=== PATIENT | male | born 1950 | race Caucasian/White ===

== ENCOUNTER 2018-03-22 05:48 | Emergency (ER) | payer MEDICARE, OTHER ==
[2018-03-22] MEDS ORDERED: DECADRON 10MG INJ. IV ONE (06:26)
[2018-03-22] MEDS ORDERED: Unasyn 3GM / NaCl 100ML 3 GM/100 ML IVPB IV STA (06:29)
[2018-03-22] MEDS ORDERED: Sodium Chloride 0.9% 1000 ML 1,000 ML IV SCH (06:30)
[2018-03-22] MEDS ORDERED: Unasyn 3GM / NaCl 100ML 3 GM/100 ML IVPB ONE (06:39)
[2018-03-22] MEDS ORDERED: DECADRON 10MG INJ. ONE (06:39)
[2018-03-22] MEDS ORDERED: Sodium Chloride 0.9% 1000 ML 1,000 ML ONE (06:39)
[2018-03-22] MEDS ORDERED: BENADRYL 50 MG/ML ONE (06:47)
[2018-03-22] MEDS ORDERED: BENADRYL 50 MG/ML IV ONE (06:47)
--- NOTE | 2018-03-22 06:53 | ERPHSYRPT ---
- History of Present Illness Source: patient Exam Limitations: clinical condition Patient Subjective Stated Complaint: Pts left ear hurts and his throat feels like it is swollen and closed off. He had strep throat about 3 weeks ago and was given a Kenalog shot. Triage Nursing Assessment: Pt A&O x3, comes in with complaints of his left side of his throat is so swollen that it he can't breath through his mouth and he can 't swallow and also that his left ear hurts and the pain radiates down the side , throat is swollen and red, neck is tender on palpation, hx of strep throat 3 weeks ago, bp 164/78, doesn't appear to be in any distress Timing/Duration: abrupt onset Severity: severe ENT Location: throat Prearrival Treatment: no prearrival treatment Modifying Factors: Improves With: nothing Associated Symptoms: difficulty swallowing <SACHIN OSULLIVAN - Last Filed: 03/22/18 06:47> <GODFREY THOMAS - Last Filed: 03/22/18 09:16> - History of Present Illness Time Seen by Provider: 03/22/18 06:12 Physician History: PATIENT STATES HE WAS TREATED FOR STREP PHARYNGITIS WITH A KENALOG INJECTION 2 WEEKS AGO, NOW HAS THROAT PAIN, PAINFUL SWALLOWING OVER THE PAST 2 DAYS. DENIES FEVER, CHILLS OR COUGH (SACHIN OSULLIVAN) Allergies/Adverse Reactions: No Known Drug Allergies Allergy (Verified 03/22/18 06:09) Home Medications: No Reportable Medications [No Reported Medications] 03/22/18 [History] - Review of Systems Constitutional: No Fever, No Chills Eyes: No Symptoms Ears, Nose, & Throat: No Symptoms, Throat Swelling, Painful Swallowing Respiratory: No Symptoms, No Cough, No Dyspnea Cardiac: No Symptoms, No Chest Pain, No Edema, No Syncope Abdominal/Gastrointestinal: No Abdominal Pain, No Nausea, No Vomiting, No Diarrhea Genitourinary Symptoms: No Dysuria Musculoskeletal: No Back Pain, No Neck Pain Skin: No Rash Neurological: No Dizziness, No Focal Weakness, No Sensory Changes Psychological: No Symptoms Endocrine: No Symptoms All Other Systems: Reviewed and Negative <SACHIN OSULLIVAN - Last Filed: 03/22/18 06:47> - Past Medical History Pertinent Past Medical History: No - Past Surgical History Past Surgical History: Yes Musculoskeletal: Other Other Surgical History: hand surgery - Social History Smoking Status: Former smoker Exposure to second hand smoke: No Drug Use: none Patient Lives Alone: No <SACHIN OSULLIVAN - Last Filed: 03/22/18 06:47> - Physical Exam General Appearance: no apparent distress, alert, other (THERE IS NO STRIDOR OR AUDIBLE WHEEZES) Eye Exam: bilateral eye: PERRL, EOMI Ear Exam: bilateral ear: auricle normal, canal normal Nasal Exam: normal inspection Throat Exam: moist mucus membranes, pharynx swelling (LEFT SOFT PALATE SWELLING WITH TENDERNESS ON THE LEFT, LEFT PHARYNGEAL SWELLING WITH ERYTHEMA, NO EXUDATE NOTED), No tonsillar exudate Neck Exam: supple Cardiovascular/Respiratory Exam: normal breath sounds, regular rate/rhythm Abdominal Exam: non-tender, soft Neurologic Exam: alert, oriented x 3, sensation nml, No motor deficits Skin Exam: normal color, warm, dry SpO2: 98 Oxygen Delivery: Room Air <SACHIN OSULLIVAN - Last Filed: 03/22/18 06:47> - Nursing Vital Signs Nursing Vital Signs: Initial Vital Signs Temperature 98.8 F 03/22/18 05:55 Pulse Rate 85 03/22/18 05:55 Blood Pressure 164/78 03/22/18 05:55 O2 Sat by Pulse Oximetry 98 03/22/18 05:55 Pain Scale Pain Intensity 0 - CT Exams Soft Tissue Neck CT Interpretation: Tele-radiologist Report, Other (soft tissue mass in left piriformis sinus with mass effect on palatine tonsil per Dr Grant.) <GODFREY THOMAS - Last Filed: 03/22/18 09:16> Ordered Tests: Active Orders 24 hr Category Date Time Status NECK WITH CONTRAST [CT] Stat Exams 03/22/18 06:27 Taken BLOOD CULTURE Stat Lab 03/22/18 06:46 Received CBC W DIFF Stat Lab 03/22/18 06:35 Completed CMP Stat Lab 03/22/18 06:35 Completed CULTURE, THROAT Stat Lab 03/22/18 06:30 Received [place] Screen Stat Lab 03/22/18 06:35 Completed STREP SCREEN-BETA A Stat Lab 03/22/18 06:30 Completed Medication Summary Generic Name Dose Route Start Last Admin Trade Name Freq PRN Reason Stop Dose Admin Sodium Chloride 1,000 mls @ 250 mls/hr 03/22/18 06:30 03/22/18 06:42 Sodium Chloride 0.9% 1000 Ml IV 04/21/18 06:29 250 mls/hr .Q4H ANA Administration Discontinued Medications Generic Name Dose Route Start Last Admin Trade Name Juliette PRN Reason Stop Dose Admin Dexamethasone Sodium Phosphate 20 mg 03/22/18 06:26 03/22/18 06:43 Decadron 10mg Inj. IV 03/22/18 06:27 20 mg STAT ONE Administration Dexamethasone Sodium Phosphate Confirm 03/22/18 06:39 Decadron 10mg Inj. Administered 03/22/18 06:40 Dose 20 mg .ROUTE .STK-MED ONE Diphenhydramine HCl 50 mg 03/22/18 06:47 03/22/18 06:56 Benadryl 50 Mg/Ml IV 03/22/18 06:48 50 mg STAT ONE Administration Diphenhydramine HCl Confirm 03/22/18 06:47 Benadryl 50 Mg/Ml Administered 03/22/18 06:48 Dose 50 mg .ROUTE .STK-MED ONE Ampicillin Sodium/Sulbactam Sodium 3 gm in 100 mls @ 200 mls/hr 03/22/18 06: 29 03/22/18 06:42 Unasyn 3gm / Nacl 100ml IV 03/22/18 06:58 200 mls/hr STAT STA 200 mls/hr Administration Ampicillin Sodium/Sulbactam Sodium Confirm 03/22/18 06:39 Unasyn 3gm / Nacl 100ml Administered 03/22/18 06:40 Dose 3 gm in 100 mls @ ud .ROUTE .STK-MED ONE Ketorolac Tromethamine 30 mg 03/22/18 07:44 03/22/18 07:47 Toradol 30 Mg Injection IV 03/22/18 07:45 30 mg STAT ONE Administration Ketorolac Tromethamine Confirm 03/22/18 07:46 Toradol 30 Mg Injection Administered 03/22/18 07:47 Dose 30 mg .ROUTE .STK-MED ONE Lab/Rad Data: Laboratory Result Diagrams 03/22/18 06:35 03/22/18 06:35 Laboratory Results 03/22/18 03/22/18 03/22/18 Range/Units 06:35 06:35 06:35 WBC 12.8 H (4.0-10.5) K/mm3 RBC 4.68 (4.1-5.6) M/mm3 Hgb 14.7 (12.5-18.0) gm/dl Hct 43.8 (42-50) % MCV 93.6 (78-100) fl MCH 31.4 (26-32) pg MCHC 33.6 (32-36) g/dl RDW 12.5 (11.5-14.0) % Plt Count 346 (150-450) K/mm3 MPV 9.2 (6-9.5) fl Gran % 79.6 H (36.0-66.0) % Eos # (Auto) 0.13 (0-0.5) Absolute Lymphs (auto) 1.40 (1.0-4.6) Absolute Monos (auto) 1.06 (0.0-1.3) Lymphocytes % 10.9 L (24.0-44.0) % Monocytes % 8.3 (0.0-12.0) % Eosinophils % 1.0 (0.00-5.0) % Basophils % 0.2 (0.0-0.4) % Absolute Granulocytes 10.19 H (1.4-6.9) Basophils # 0.02 (0-0.4) Sodium 138 (137-145) mmol/L Potassium 4.6 (3.5-5.1) mmol/L Chloride 102 (98-107) mmol/L Carbon Dioxide 28 (22-30) mmol/L Anion Gap 13.4 (5-15) MEQ/L BUN 10 (9-20) mg/dL Creatinine 0.68 (0.66-1.25) mg/dL Estimated GFR > 60.0 ML/MIN Glucose 139 H (74-106) mg/dL Calcium 9.3 (8.4-10.2) mg/dL Total Bilirubin 1.00 (0.2-1.3) mg/dL AST 28 (17-59) U/L ALT 25 (0-50) U/L Alkaline Phosphatase 75 (38-126) U/L Serum Total Protein 7.1 (6.3-8.2) g/dL Albumin 4.1 (3.5-5.0) g/dL Monoscreen NEGATIVE (Negative) Streptococcus Screen (Negative) 03/22/18 Range/Units 06:30 WBC (4.0-10.5) K/mm3 RBC (4.1-5.6) M/mm3 Hgb (12.5-18.0) gm/dl Hct (42-50) % MCV (78-100) fl MCH (26-32) pg MCHC (32-36) g/dl RDW (11.5-14.0) % Plt Count (150-450) K/mm3 MPV (6-9.5) fl Gran % (36.0-66.0) % Eos # (Auto) (0-0.5) Absolute Lymphs (auto) (1.0-4.6) Absolute Monos (auto) (0.0-1.3) Lymphocytes % (24.0-44.0) % Monocytes % (0.0-12.0) % Eosinophils % (0.00-5.0) % Basophils % (0.0-0.4) % Absolute Granulocytes (1.4-6.9) Basophils # (0-0.4) Sodium (137-145) mmol/L Potassium (3.5-5.1) mmol/L Chloride (98-107) mmol/L Carbon Dioxide (22-30) mmol/L Anion Gap (5-15) MEQ/L BUN (9-20) mg/dL Creatinine (0.66-1.25) mg/dL Estimated GFR ML/MIN Glucose (74-106) mg/dL Calcium (8.4-10.2) mg/dL Total Bilirubin (0.2-1.3) mg/dL AST (17-59) U/L ALT (0-50) U/L Alkaline Phosphatase (38-126) U/L Serum Total Protein (6.3-8.2) g/dL Albumin (3.5-5.0) g/dL Monoscreen (Negative) Streptococcus Screen NEGATIVE (Negative) <SACHIN OSULLIVAN - Last Filed: 03/22/18 06:47> - Progress Progress: improved Discussed with : Other (Dr Mckeon at [facility]) Will see patient in: hospital (observation) (at [facility]) Counseled pt/family regarding: lab results, diagnosis, rad results <GODFREY THOMAS - Last Filed: 03/22/18 09:16> - Progress Progress Note: 03/22/18 06:55 IV NORMAL SALINE 200ML/HR, DECADRON 20MG, ONSET OF ITCHING, ADMINISTERED BENADRYL 50MG IV, AFTER BLOOD CULTURES UNASYN 3GM IVPB, A SOFT TISSUE NECK WITH INTRAVENOUS PENDING, PATIENT CARE ENDORSED TO DR THOMAS AT 0705 (SACHIN OSULLIVAN) 03/22/18 07:10 Pt care discussed and care accepted from Dr Osullivan at 07:05. (GODFREY THOMAS) <SACHIN OSULLIVAN - Last Filed: 03/22/18 06:47> - Departure Time of Disposition: 09:02 Departure Disposition: Transfer (Transfer to [facility] per hospitalist Dr Mckeon and ENT DR Thomas.) Critical Care Time: No <GODFREY THOMAS - Last Filed: 03/22/18 09:16> - Departure Clinical Impression: Supraglottitis Condition: Stable Additional Instructions: You have supraglottitis. You are being transferred to [facility] to see the hospitalist Dr Mckeon and the ENT specialist Dr Thomas.
[2018-03-22 07:00] LABS: BASOPHIL % 0.2 % (0.0-0.4); Basophil (Absolute #) 0.02 (0-0.4); Eosinophil (Absolute #) 0.13 (0-0.5); Granulocyte Absolute (ANC) 10.19 (1.4-6.9); Granulocytes % 79.6 % (36.0-66.0); Hematocrit 43.8 % (42-50); Hemoglobin 14.7 gm/dl (12.5-18.0); Lymphocytes % 10.9 % (24.0-44.0); Mean Cell Volume 93.6 fl (78-100); Mean Corpuscular Hemoglobin 31.4 pg (26-32); Mean Corpuscular Hgb Concent. 33.6 g/dl (32-36); Mean Platelet Volume 9.2 fl (6-9.5); Monocyte (Absolute #) 1.06 (0.0-1.3); Monocytes % 8.3 % (0.0-12.0); Platelet Count 346 K/mm3 (150-450); Red Blood Count 4.68 M/mm3 (4.1-5.6); Red Cell Distribution Width 12.5 % (11.5-14.0); White Blood Count 12.8 K/mm3 (4.0-10.5)
[2018-03-22 07:31] LABS: ALBUMIN 4.1 g/dL (3.5-5.0); ALKALINE PHOSPHATASE 75 U/L (38-126); ANION GAP 13.4 MEQ/L (5-15); BLOOD UREA NITROGEN 10 mg/dL (9-20); CHLORIDE 102 mmol/L (98-107); Calcium 9.3 mg/dL (8.4-10.2); Carbon Dioxide 28 mmol/L (22-30); Creatinine 1 0.68 mg/dL (0.66-1.25); Glucose 139 mg/dL (74-106); Potassium 4.6 mmol/L (3.5-5.1); SGOT/AST 28 U/L (17-59); SGPT/ALT 25 U/L (0-50); SODIUM 138 mmol/L (137-145); Total Protein 7.1 g/dL (6.3-8.2)
[2018-03-22] MEDS ORDERED: TORAdol 30 mg Injection IV ONE (07:44)
[2018-03-22] MEDS ORDERED: TORAdol 30 mg Injection ONE (07:46)
--- NOTE | 2018-03-22 08:51 | XRAY ---
Indication: Swollen throat. Pain with swallowing. Multiple contiguous axial images obtained through the neck using 80 cc Isovue 370 contrast. Sagittal and coronal reformatted images obtained. Comparison: None There is beam artifact from dental prosthesis limiting these levels. There is a 2.2 x 2.0 x 4.1 cm soft tissue mass at the level of the piriformis sinus on the left narrowing the hypopharynx and slightly effacing the palatine tonsil. Epiglottis unremarkable. Infraglottic airway widely patent. Scattered small subcentimeter cervical lymph nodes bilaterally, none pathologically enlarged. Parotid and submandibular glands are bilaterally symmetric. Mild carotid calcifications bilaterally. Venous system unremarkable. Thyroid gland enhances homogeneously. Visualized cervical spine intact with multilevel bridging/nonbridging endplate osteophytes. Base of the brain and lung apices unremarkable. Visualized paranasal sinuses and mastoid air cells are clear. Impression: 1. Beam artifact from dental prosthesis. 2. Soft tissue mass in the left piriformis sinus with mass effect on the palatine tonsil. Rule out malignancy. Direct laryngoscopy recommended. CT DI 14.67
[2018-03-22 09:23] VITALS: BP 131/69
[2018-03-22 10:32] VITALS: PULSE 66; O2SAT 98
== END 2018-03-22 10:33 | disposition short-term general hospital (02) ==
LOC: ED 05:48
DX: J04.30 Supraglottitis, unspecified, without obstruction (principal)
CPT/HCPCS: 36415; 70491; 80053; 85025; 86308; 87040; 87070; 87430; 96360; 96361; 96365; 96374; 96375; 99285; J0295; J1100; J1200; J1885

== ENCOUNTER 2021-08-01 10:02 | Observation (INO) | payer MEDICARE, OTHER ==
[2021-08-01 10:30] LABS: Absolute Neutrophil Ct (ANC) 13.11 (1.4-6.9); BASOPHIL % 0.1 % (0.0-0.4); Basophil (Absolute #) 0.02 (0-0.4); Eosinophil % 0.2 % (0.00-5.0); Eosinophil (Absolute #) 0.03 (0-0.5); Hematocrit 45.6 % (42-50); Hemoglobin 14.8 gm/dl (12.5-18.0); Lymphocyte (Absolute #) 1.74 (1.0-4.6); Lymphocytes % 10.8 % (24.0-44.0); Mean Cell Volume 93.4 fl (78-100); Mean Corpuscular Hemoglobin 30.3 pg (26-32); Mean Corpuscular Hgb Concent. 32.5 g/dl (32-36); Mean Platelet Volume 9.1 fl (7.5-11.0); Monocyte (Absolute #) 1.25 (0.0-1.3); Monocytes % 7.7 % (0.0-12.0); Neutrophil % 81.2 % (36.0-66.0); Platelet Count 321 K/mm3 (150-450); Red Blood Count 4.88 M/mm3 (4.1-5.6); Red Cell Distribution Width 12.1 % (11.5-14.0); White Blood Count 16.2 K/mm3 (4.0-10.5)
[2021-08-01 12:02] LABS: ALBUMIN 4.8 g/dL (3.5-5.0); ALKALINE PHOSPHATASE 69 U/L (38-126); AMYLASE 71 U/L (30-110); ANION GAP 15.4 MEQ/L (5-15); BLOOD UREA NITROGEN 12 mg/dL (9-20); CHLORIDE 99 mmol/L (98-107); Calcium 9.5 mg/dL (8.4-10.2); Carbon Dioxide 25 mmol/L (22-30); Creatinine 1 0.77 mg/dL (0.66-1.25); EST GLOMERULAR FILTRATION RATE > 60.0 ML/MIN; Glucose 132 mg/dL (74-106); LIPASE 36 U/L (23-300); Potassium 4.6 mmol/L (3.5-5.1); SGOT/AST 32 U/L (17-59); SGPT/ALT 26 U/L (0-50); SODIUM 134 mmol/L (137-145); Total Protein 8.2 g/dL (6.3-8.2)
[2021-08-01] MEDS ORDERED: MORPHINE SULFATE 10 MG/ML IV PRN ×2 (13:13→19:26)
[2021-08-01] MEDS ORDERED: Zofran 4 MG/2 ML VIAL IV PRN ×2 (13:13→19:27)
--- NOTE | 2021-08-01 13:14 | XRAY ---
Exam: CT of the abdomen and pelvis with IV contrast from 08/01/2021. CTDI: 9.19 mGy Comparison: None. Indication: 70-year-old male with right lower quadrant abdominal pain and tenderness since last night. Technique: Post-IV contrast axial images were obtained through the abdomen and pelvis during automated injection of 80 cc of Isovue-370 contrast material. No oral contrast was given. Reconstructed coronal and sagittal images were created and reviewed. Delayed axial images were obtained as well. Findings: Within the right lower quadrant, there is a dilated appendix which measures up to 10 mm in diameter and demonstrates abnormal peripheral wall enhancement. Also, periappendiceal inflammatory stranding and minimal edema are also seen. These findings are consistent with acute appendicitis. I see no evidence of periappendiceal abscess. The visualized lung bases appear clear. The transverse heart size is normal. I cannot completely exclude a minimal sliding hiatal hernia. The liver and spleen appear of normal size and reveal no focal mass. No intrahepatic biliary duct distention is seen. The gallbladder is distended and reveals no dense calcifications within it or definite gallbladder wall thickening. No extrahepatic biliary duct distention is seen. The pancreas and adrenal glands appear unremarkable. The kidneys are unremarkable size. No renal calculi or hydronephrosis is seen. Both kidneys function on delayed images. There is a mild extrarenal pelvis on the left. Portions of both ureters are opacified and appear unremarkable. No ureterolith is seen. The urinary bladder is only minimally distended which accentuates the urinary bladder wall thickness. A calcified, mildly tortuous abdominal aorta is seen. I also note some atherosclerotic vascular calcification at the origin of the renal arteries and within the iliac arteries. No abdominal aortic aneurysm or abnormal retroperitoneal lymphadenopathy is seen. Abundant intraperitoneal fat is seen. I detect no bowel containing ventral hernia or free intraperitoneal air. There is no evidence of bowel obstruction or abnormal bowel wall thickening. I do note mild sigmoid colon diverticulosis without evidence of diverticulitis. Scattered stool is seen throughout the colon. There is no pelvic mass, abnormal pelvic lymphadenopathy, or free intraperitoneal fluid. The seminal vesicles appear unremarkable. The prostate gland measures about 4.0 cm in width and contains some central calcification. There is some herniation of fat into both inguinal canals. A bowel containing inguinal hernia is not seen. The femoral regions appear unremarkable. Some common femoral artery vascular calcification is seen. The skeleton reveals no acute fracture or aggressive bone lesion. Mild to moderate lower thoracolumbar spondylosis is seen with prominent vertebral endplate spurs at L2-L3 and L3-L4. I believe there is mild diffuse bulging of the L3-L4 disc and at least moderate diffuse bulging of the L4-L5 disc. In addition, there is hypertrophy of the ligamentum flavum posterolaterally on each side of midline and bilateral L4-L5 facet joint arthropathy (right greater than left). The composite of these findings appears be causing at least a moderate central canal lumbar spinal stenosis at L4-L5. I also note mild facet joint arthropathy bilaterally at L5-S1. There is mild posterior bulging of the L5-S1 disc. Impression: 1. CT findings consistent with acute appendicitis. A periappendiceal abscess is not seen at this time. I personally called Dr. Ayers this report about 12:55 PM on 08/01/2010 21. 2. I believe there is a minimal hiatal hernia. Also, there is mild sigmoid colon diverticulosis without evidence of diverticulitis. No other acute process is seen within the abdomen or pelvis. 3. Degenerative changes are seen within the lower thoracolumbar spine, as detailed above. I believe there is at least moderate central canal lumbar spinal stenosis at L4-L5 on axial image #54.
[2021-08-01] MEDS ORDERED: Sensorcaine 0.25% 10 ML ONE (14:34)
[2021-08-01] MEDS ORDERED: MEFOXIN 2 GM PREMIX** 2 GM/50 ML ML IV ONE (15:00)
[2021-08-01] MEDS ORDERED: Lactated Ringers 1,000 ML IV ONE (15:00)
[2021-08-01] MEDS ORDERED: TORAdol 30 mg Injection ONE (15:11)
[2021-08-01] MEDS ORDERED: DIPRIVAN 200 MG/20 ML IV ONE (15:11)
[2021-08-01] MEDS ORDERED: Zemuron 100 MG/10 ML ONE (15:11)
[2021-08-01] MEDS ORDERED: Zofran 4 MG/2 ML VIAL ONE (15:11)
[2021-08-01] MEDS ORDERED: Decadron 4 MG INJ ONE (15:11)
[2021-08-01] MEDS ORDERED: Xylocaine-Mpf 2% 5 Ml Vial ONE (15:11)
[2021-08-01] MEDS ORDERED: BRIDION 200MG/2ML IV ONE (15:11)
[2021-08-01] MEDS ORDERED: SUBLIMAZE 100 MCG/2 ML ONE (15:11)
[2021-08-01] MEDS: Zosyn 3.375 GM Vial 3.375 GM in Sodium Chloride 100ML MINI-BAG PLUS 100 ML IV SCH ×2 (18:04→23:56)
[2021-08-01] MEDS ORDERED: NORCO 7.5/325 MG TAB PO PRN (18:55)
[2021-08-01] MEDS ORDERED: NORCO 5/325 MG PO PRN (19:26)
[2021-08-01] MEDS ORDERED: D5W/0.45NS W/ 20mEq KCl 1000 ML 1,000 ML IV SCH (19:30)
[2021-08-01] MEDS ORDERED: Lactated Ringers 0 ML IV ONE (22:47)
[2021-08-01] MEDS ORDERED: Unasyn 3 GM Vial ONE (23:12)
[2021-08-01] MEDS ORDERED: Sodium Chloride 100ML MINI-BAG PLUS 100 ML IV ONE (23:13)
[2021-08-01] MEDS: Unasyn 3 GM Vial*** 3 G in Sodium Chloride 100ML MINI-BAG PLUS 100 ML IV SCH (23:17)
[2021-08-02] MEDS ORDERED: Unasyn 3 GM Vial ONE (04:38)
[2021-08-02] MEDS ORDERED: Sodium Chloride 100ML MINI-BAG PLUS 100 ML IV ONE (04:39)
[2021-08-02] MEDS: Unasyn 3 GM Vial*** 3 G in Sodium Chloride 100ML MINI-BAG PLUS 100 ML IV SCH (05:08)
[2021-08-02 05:45] LABS: Absolute Neutrophil Ct (ANC) 10.45 (1.4-6.9); Basophil (Absolute #) 0 (0-0.4); Eosinophil (Absolute #) 0 (0-0.5); Hematocrit 39.8 % (42-50); Hemoglobin 12.8 gm/dl (12.5-18.0); Lymphocyte (Absolute #) 0.73 (1.0-4.6); Lymphocytes % 6.2 % (24.0-44.0); Mean Cell Volume 94.5 fl (78-100); Mean Corpuscular Hemoglobin 30.4 pg (26-32); Mean Corpuscular Hgb Concent. 32.2 g/dl (32-36); Mean Platelet Volume 9.3 fl (7.5-11.0); Monocyte (Absolute #) 0.56 (0.0-1.3); Monocytes % 4.8 % (0.0-12.0); Platelet Count 296 K/mm3 (150-450); Red Blood Count 4.21 M/mm3 (4.1-5.6); White Blood Count 11.7 K/mm3 (4.0-10.5)
[2021-08-02] MEDS: Zosyn 3.375 GM Vial 3.375 GM in Sodium Chloride 100ML MINI-BAG PLUS 100 ML IV SCH (05:46)
[2021-08-02 05:51] LABS: ALBUMIN 4.1 g/dL (3.5-5.0); ALKALINE PHOSPHATASE 54 U/L (38-126); ANION GAP 13.2 MEQ/L (5-15); BLOOD UREA NITROGEN 19 mg/dL (9-20); CHLORIDE 99 mmol/L (98-107); Calcium 9.1 mg/dL (8.4-10.2); Carbon Dioxide 25 mmol/L (22-30); Creatinine 1 1.01 mg/dL (0.66-1.25); EST GLOMERULAR FILTRATION RATE > 60.0 ML/MIN; Glucose 211 mg/dL (74-106); SGOT/AST 26 U/L (17-59); SGPT/ALT 19 U/L (0-50); SODIUM 132 mmol/L (137-145); Total Protein 7.1 g/dL (6.3-8.2)
[2021-08-02] MEDS ORDERED: MORPHINE SULFATE 2 MG INJ IV PRN (06:56)
[2021-08-02] MEDS ORDERED: MORPHINE SULFATE 4 MG INJ IV PRN (06:56)
--- NOTE | 2021-08-02 08:01 | PCM.SSS ---
History of Present Illness - Chief Complaint Chief Complaint: acute appendicitis History of Present Illness: is a 70 year old male who was seen in the office yesterday, started to have pain in the right lower abdomen with anorexia and nausea 1 day prior to arrival, exam and ct consistent with acute appendicitis. Dr Wagner performed laparoscopic appendectomy shortly after admission and Wicho is doing well today, pain is minimal, he is tolerating liquids, waiting on breakfast, voiding with no difficulty. - Review of Systems Constitutional: No Symptoms Respiratory: No Cough, No Short Of Breath Cardiac: No Chest Pain, No Edema, No Syncope Abdominal/Gastrointestinal: Abdominal Pain (mild post-op) Genitourinary Symptoms: No Dysuria Skin: No Rash All Other Systems: Reviewed and Negative Medications & Allergies Home Medications: Home Medication List Aspirin EC 81 mg [Ecotrin 81 mg] 81 mg PO DAILY 08/01/21 [History Confirmed 08/01/21] Ezetimibe 10 mg [Zetia 10 MG] 10 mg PO DAILY 08/01/21 [History Confirmed 08/01/21] Lisinopril 20 mg [Zestril 20 MG] 20 mg PO DAILY 08/01/21 [History Confirmed 08/01/21] Rosuvastatin Calcium 20 mg PO DAILY 08/01/21 [History Confirmed 08/01/21] Allergies/Adverse Reactions: Allergies Allergy/AdvReac Type Severity Reaction Status Date / Time No Known Drug Allergies Allergy Verified 08/01/21 14:15 - Past Medical History Past Medical History: No Neurological History: No Pertinent History ENT History: No Pertinent History Cardiac History: High Cholesterol, Hypertension Respiratory History: No Pertinent History Endocrine Medical History: Diabetes Type II Musculoskelatal History: No Pertinent History GI Medical History: No Pertinent History History: No Pertinent History Pyscho-Social History: No Pertinent History Male Reproductive Disorders: No Pertinent History - Past Surgical History Past Surgical History: No Neuro Surgical History: No Pertinent History Cardiac History: No Pertinent History Respiratory Surgery: No Pertinent History GI Surgical History: No Pertinent History Genitourinary Surgical Hx: No Pertinent History Musculskeletal Surgical Hx: Other Male Surgical History: No Pertinent History Other Surgical History: Hand surgery "years and years" ago. Oral Bridge implanted to upper teeth a few weeks ago - Social History Smoking Status: Former smoker Exposure to second hand smoke: No Alcohol: Occasionally Drug Use: none - Physical Exam Vital Signs: Vital Signs - 24 hr Temp Pulse Resp BP Pulse Ox 08/02/21 04:00 98.9 F 61 18 118/55 97 08/01/21 23:56 97.8 F 56 L 18 120/57 95 08/01/21 20:25 98.8 F 76 19 126/59 95 08/01/21 19:25 98.2 F 69 18 123/58 96 08/01/21 18:26 62 18 129/61 96 08/01/21 17:50 62 16 125/60 98 08/01/21 17:20 62 16 133/62 98 08/01/21 17:05 98.2 F 65 16 145/65 96 08/01/21 14:40 97.7 F 72 16 186/59 96 08/01/21 13:43 97.7 F 72 16 186/59 96 General Appearance: no apparent distress Neurologic Exam: alert, oriented x 3 Respiratory Exam: normal breath sounds, lungs clear, No respiratory distress Cardiovascular Exam: regular rate/rhythm, normal heart sounds, normal peripheral pulses Gastrointestinal/Abdomen Exam: soft, normal bowel sounds, other (dressings c/d/i), No tenderness, No mass Extremity Exam: normal inspection, normal range of motion, pelvis stable Skin Exam: normal color, warm, dry, No rash Results - Labs Lab/Micro Results: Lab Results-Last 24 Hours 08/01/21 08/01/21 08/01/21 Range/Units 10:15 10:15 13:15 WBC 16.2 H (4.0-10.5) K/mm3 RBC 4.88 (4.1-5.6) M/mm3 Hgb 14.8 (12.5-18.0) gm/dl Hct 45.6 (42-50) % MCV 93.4 (78-100) fl MCH 30.3 (26-32) pg MCHC 32.5 (32-36) g/dl RDW 12.1 (11.5-14.0) % Plt Count 321 (150-450) K/mm3 MPV 9.1 (7.5-11.0) fl Gran % 81.2 H (36.0-66.0) % Eos # (Auto) 0.03 (0-0.5) Absolute Lymphs (auto) 1.74 (1.0-4.6) Absolute Monos (auto) 1.25 (0.0-1.3) Lymphocytes % 10.8 L (24.0-44.0) % Monocytes % 7.7 (0.0-12.0) % Eosinophils % 0.2 (0.00-5.0) % Basophils % 0.1 (0.0-0.4) % Absolute Granulocytes 13.11 H (1.4-6.9) Basophils # 0.02 (0-0.4) Sodium 134 L (137-145) mmol/L Potassium 4.6 (3.5-5.1) mmol/L Chloride 99 (98-107) mmol/L Carbon Dioxide 25 (22-30) mmol/L Anion Gap 15.4 H (5-15) MEQ/L BUN 12 (9-20) mg/dL Creatinine 0.77 (0.66-1.25) mg/dL Estimated GFR > 60.0 ML/MIN Glucose 132 H (74-106) mg/dL Calcium 9.5 (8.4-10.2) mg/dL Total Bilirubin 0.90 (0.2-1.3) mg/dL AST 32 (17-59) U/L ALT 26 (0-50) U/L Alkaline Phosphatase 69 (38-126) U/L Serum Total Protein 8.2 (6.3-8.2) g/dL Albumin 4.8 (3.5-5.0) g/dL Amylase 71 (30-110) U/L Lipase 36 (23-300) U/L SARS-CoV-2 (PCR) NEGATIVE (NEGATIVE) 08/02/21 08/02/21 Range/Units 05:00 05:00 WBC 11.7 H (4.0-10.5) K/mm3 RBC 4.21 (4.1-5.6) M/mm3 Hgb 12.8 (12.5-18.0) gm/dl Hct 39.8 L (42-50) % MCV 94.5 (78-100) fl MCH 30.4 (26-32) pg MCHC 32.2 (32-36) g/dl RDW 12.0 (11.5-14.0) % Plt Count 296 (150-450) K/mm3 MPV 9.3 (7.5-11.0) fl Gran % 89.0 H (36.0-66.0) % Eos # (Auto) 0 (0-0.5) Absolute Lymphs (auto) 0.73 L (1.0-4.6) Absolute Monos (auto) 0.56 (0.0-1.3) Lymphocytes % 6.2 L (24.0-44.0) % Monocytes % 4.8 (0.0-12.0) % Eosinophils % 0.0 (0.00-5.0) % Basophils % 0.0 (0.0-0.4) % Absolute Granulocytes 10.45 H (1.4-6.9) Basophils # 0 (0-0.4) Sodium 132 L (137-145) mmol/L Potassium 5.0 (3.5-5.1) mmol/L Chloride 99 (98-107) mmol/L Carbon Dioxide 25 (22-30) mmol/L Anion Gap 13.2 (5-15) MEQ/L BUN 19 (9-20) mg/dL Creatinine 1.01 (0.66-1.25) mg/dL Estimated GFR > 60.0 ML/MIN Glucose 211 H (74-106) mg/dL Calcium 9.1 (8.4-10.2) mg/dL Total Bilirubin 0.60 (0.2-1.3) mg/dL AST 26 (17-59) U/L ALT 19 (0-50) U/L Alkaline Phosphatase 54 (38-126) U/L Serum Total Protein 7.1 (6.3-8.2) g/dL Albumin 4.1 (3.5-5.0) g/dL Amylase (30-110) U/L Lipase (23-300) U/L SARS-CoV-2 (PCR) (NEGATIVE) - Radiology Impressions Radiology Exams & Impressions: Radiology Procedures Category Date Time Status ABDOMEN AND PELVIS W CONTRAST [CT] Stat Exams 08/01/21 12:21 Completed Assessment/Plan (1) Acute appendicitis Current Visit: Yes Status: Acute Assessment & Plan: doing well post-op, likely home later today when released by surgery Code(s): K35.80 - UNSPECIFIED ACUTE APPENDICITIS Hospital Summary - Vitals & Intake/Output Vital Signs: Vital Signs Temperature 98.9 F 08/02/21 04:00 Pulse Rate 61 08/02/21 04:00 Respiratory Rate 18 08/02/21 04:00 Blood Pressure 118/55 08/02/21 04:00 O2 Sat by Pulse Oximetry 97 08/02/21 04:00 Intake & Output: Intake & Output 07/30/21 07/31/21 08/01/21 08/02/21 11:59 11:59 11:59 11:59 Intake Total 1413 Balance 1413 Weight 90.4 kg - Lab Result Diagrams: 08/02/21 05:00 08/02/21 05:00 Lab Results-Last 24 Hrs: Lab Results-Last 24 Hours 08/01/21 08/01/21 08/01/21 Range/Units 10:15 10:15 13:15 WBC 16.2 H (4.0-10.5) K/mm3 RBC 4.88 (4.1-5.6) M/mm3 Hgb 14.8 (12.5-18.0) gm/dl Hct 45.6 (42-50) % MCV 93.4 (78-100) fl MCH 30.3 (26-32) pg MCHC 32.5 (32-36) g/dl RDW 12.1 (11.5-14.0) % Plt Count 321 (150-450) K/mm3 MPV 9.1 (7.5-11.0) fl Gran % 81.2 H (36.0-66.0) % Eos # (Auto) 0.03 (0-0.5) Absolute Lymphs (auto) 1.74 (1.0-4.6) Absolute Monos (auto) 1.25 (0.0-1.3) Lymphocytes % 10.8 L (24.0-44.0) % Monocytes % 7.7 (0.0-12.0) % Eosinophils % 0.2 (0.00-5.0) % Basophils % 0.1 (0.0-0.4) % Absolute Granulocytes 13.11 H (1.4-6.9) Basophils # 0.02 (0-0.4) Sodium 134 L (137-145) mmol/L Potassium 4.6 (3.5-5.1) mmol/L Chloride 99 (98-107) mmol/L Carbon Dioxide 25 (22-30) mmol/L Anion Gap 15.4 H (5-15) MEQ/L BUN 12 (9-20) mg/dL Creatinine 0.77 (0.66-1.25) mg/dL Estimated GFR > 60.0 ML/MIN Glucose 132 H (74-106) mg/dL Calcium 9.5 (8.4-10.2) mg/dL Total Bilirubin 0.90 (0.2-1.3) mg/dL AST 32 (17-59) U/L ALT 26 (0-50) U/L Alkaline Phosphatase 69 (38-126) U/L Serum Total Protein 8.2 (6.3-8.2) g/dL Albumin 4.8 (3.5-5.0) g/dL Amylase 71 (30-110) U/L Lipase 36 (23-300) U/L SARS-CoV-2 (PCR) NEGATIVE (NEGATIVE) 08/02/21 08/02/21 Range/Units 05:00 05:00 WBC 11.7 H (4.0-10.5) K/mm3 RBC 4.21 (4.1-5.6) M/mm3 Hgb 12.8 (12.5-18.0) gm/dl Hct 39.8 L (42-50) % MCV 94.5 (78-100) fl MCH 30.4 (26-32) pg MCHC 32.2 (32-36) g/dl RDW 12.0 (11.5-14.0) % Plt Count 296 (150-450) K/mm3 MPV 9.3 (7.5-11.0) fl Gran % 89.0 H (36.0-66.0) % Eos # (Auto) 0 (0-0.5) Absolute Lymphs (auto) 0.73 L (1.0-4.6) Absolute Monos (auto) 0.56 (0.0-1.3) Lymphocytes % 6.2 L (24.0-44.0) % Monocytes % 4.8 (0.0-12.0) % Eosinophils % 0.0 (0.00-5.0) % Basophils % 0.0 (0.0-0.4) % Absolute Granulocytes 10.45 H (1.4-6.9) Basophils # 0 (0-0.4) Sodium 132 L (137-145) mmol/L Potassium 5.0 (3.5-5.1) mmol/L Chloride 99 (98-107) mmol/L Carbon Dioxide 25 (22-30) mmol/L Anion Gap 13.2 (5-15) MEQ/L BUN 19 (9-20) mg/dL Creatinine 1.01 (0.66-1.25) mg/dL Estimated GFR > 60.0 ML/MIN Glucose 211 H (74-106) mg/dL Calcium 9.1 (8.4-10.2) mg/dL Total Bilirubin 0.60 (0.2-1.3) mg/dL AST 26 (17-59) U/L ALT 19 (0-50) U/L Alkaline Phosphatase 54 (38-126) U/L Serum Total Protein 7.1 (6.3-8.2) g/dL Albumin 4.1 (3.5-5.0) g/dL Amylase (30-110) U/L Lipase (23-300) U/L SARS-CoV-2 (PCR) (NEGATIVE) - Radiology Exams Ordered Rad Exams-Entire Visit: Radiology Procedures Category Date Time Status ABDOMEN AND PELVIS W CONTRAST [CT] Stat Exams 08/01/21 12:21 Completed - Discharge Disposition: Home, Self-Care Condition: Stable Prescriptions: Continue Rosuvastatin Calcium 20 mg PO DAILY Ezetimibe 10 mg [Zetia 10 MG] 10 mg PO DAILY Aspirin EC 81 mg [Ecotrin 81 mg] 81 mg PO DAILY Lisinopril 20 mg [Zestril 20 MG] 20 mg PO DAILY Follow up with: VICTOR HUGO BENAVIDEZ MD [Primary Care Provider] -
--- NOTE | 2021-08-02 08:53 | OP ---
SURGERY DATE/TIME: 08/01/2021 1512 PREOPERATIVE DIAGNOSIS: Acute appendicitis. POSTOPERATIVE DIAGNOSIS: Acute appendicitis. PROCEDURE: Laparoscopic appendectomy. SURGEON: Ángel Wagner M.D. ANESTHESIA: General endotracheal tube. COMPLICATIONS: None. CONDITION: Stable. INDICATION: The patient with findings, symptoms compatible with appendicitis. His symptoms are about [address] positive. White count positive. Seen and examined, procedure discussed. DESCRIPTION OF PROCEDURE: Taken to surgery. General anesthetic. Routine prep and drape. Veress needle inserted. Opening pressure of 1, insufflating pressure 14. Two - 5's and one - 12. Good visualization. The appendix was totally dusky and retrocecal. With care and patience, a ligature was used and the right gutter was mobilized. The appendix was mobilized out of the appendiceal bed. At this time the base was able to be mobilized. It was taken with 2.5 vascular cartridge and then the mesoappendix was sequentially taken with two cartridges. The appendix was long, skinny, acutely inflamed. It was able to be pulled up through the 12 port with no violation. The field was dry. It was irrigated. It was suctioned. No drains were placed. There had been no rupture. It was acutely gangrenous however. The 12 site closed with 0 Vicryl. CO2 was exsufflated. Skin closed with 4-0 Vicryl and Steri-Strips. The patient tolerated the procedure satisfactorily.
--- NOTE | 2021-08-02 09:46 | PCM.DCORD ---
- Discharge Disposition: Home, Self-Care Condition: Stable Prescriptions: New Amox Tr/Potass Clav. 500 mg [Augmentin 500-125 Tablet] 500 mg PO TID #21 tablet Hydrocodone/Acetaminophen [Hydrocodone-Acetamin 5-325 mg] 1 tab PO Q6HPRN PRN #28 tablet MDD 4 PRN Reason: Pain Continue Rosuvastatin Calcium 20 mg PO DAILY Ezetimibe 10 mg [Zetia 10 MG] 10 mg PO DAILY Aspirin EC 81 mg [Ecotrin 81 mg] 81 mg PO DAILY Lisinopril 20 mg [Zestril 20 MG] 20 mg PO DAILY Follow up with: OSMANY ANGELO [ACTIVE STAFF] -
[2021-08-02] MEDS ORDERED: Zetia 10 MG PO SCH (10:00)
[2021-08-02] MEDS ORDERED: NON-FORMULARY ITEM (Rosuvastatin Calcium [Rosuvastatin Calcium] 20 MG) PO SCH (10:00)
[2021-08-02] MEDS ORDERED: ZOCOR 20MG PO SCH (10:00)
[2021-08-02] MEDS ORDERED: ECOTRIN 81 MG PO SCH (10:00)
[2021-08-02] MEDS ORDERED: Zestril 20 MG PO SCH (10:00)
[2021-08-02 10:11] VITALS: BP 130/60; PULSE 63; O2SAT 95
== END 2021-08-02 10:35 | disposition home or self-care (01) ==
LOC: RAD 10:02 → MED SURG 13:09
PROVIDERS: ADMIT Family Medicine; ATTEND Family Medicine
DX: K35.80 Unspecified acute appendicitis (principal); R53.83 Other fatigue; R10.31 Right lower quadrant pain; E11.9 Type 2 diabetes mellitus without complications; I10 Essential (primary) hypertension; E78.00 Pure hypercholesterolemia, unspecified; Z79.899 Other long term (current) drug therapy; Z20.822 Contact with and (suspected) exposure to COVID-19
CPT/HCPCS: 36415; 44970; 74177; 80053; 82150; 83690; 85025; G0378; U0003; 88304; 99213; J0295; J0694; J1100; J1885; J2405; J2704; J3010; A9270-GY